=== PATIENT | female | born 1940 | race Caucasian/White ===

== ENCOUNTER → 2018-03-12 | Outpatient (CLI) | payer MEDICARE | END | disposition home or self-care (01) | LOC: PCVCIMAG 10:01 | DX: I08.1 Rheumatic disorders of both mitral and tricuspid valves (principal); I25.10 Atherosclerotic heart disease of native coronary artery without angina pectoris; I10 Essential (primary) hypertension; E78.00 Pure hypercholesterolemia, unspecified; I45.10 Unspecified right bundle-branch block; C50.919 Malignant neoplasm of unspecified site of unspecified female breast; R94.31 Abnormal electrocardiogram [ECG] [EKG]; Z79.899 Other long term (current) drug therapy; Z79.82 Long term (current) use of aspirin | CPT/HCPCS: 93005; 93306; G0463 ==

== ENCOUNTER → 2018-11-12 | Outpatient (CLI) | payer MEDICARE ==
--- NOTE | 2018-11-12 14:20 | PCVCIMAG ---
APPROVED REPORT Study performed: 11/12/2018 12:59:33 EXAM: Limited 2D and color flow Echocardiogram Patient Location: Echo lab Status: routine BSA: 1.73 HR: 68 bpmBP: 140/76 mmHg Rhythm: RBBB Other Information Study Quality: Adequate Risk Factors: Cardiac Risk Factors: HTN Indications CAD assess ef post chemo, RBBB 2D Dimensions IVSd: 12.19 (7-11mm) LVDd: 34.91 mm PWd: 8.97 (7-11mm) LVDs: 30.02 (25-40mm) Left Atrium: 33.21 (27-40mm) Aortic Root: 33.41 mm LV Single Plane 4CH: 62.39 % LV Single Plane 2CH: 53.16 % Biplane EF: 57.7 % Tricuspid Valve TR Peak Dami.: 2.23 m/s TR Peak Gr.: 19.86 mmHg Left Ventricle The left ventricle is normal size. There is normal LV segmental wall motion. Borderline concentric left ventricular hypertrophy. Left ventricular systolic function is normal. The left ventricular ejection fraction is within the normal range. LVEF is 55-60%. This study is not technically sufficient to allow evaluation of the LV diastolic function. Right Ventricle The right ventricle is normal size. The right ventricular systolic function is normal. Atria The left atrium size is normal. The right atrium size is normal. Aortic Valve The aortic valve is normal in structure. No aortic regurgitation is present. There is no aortic valvular stenosis. Mitral Valve The mitral valve is normal in structure. Mild mitral regurgitation. No evidence of mitral valve stenosis. Tricuspid Valve The tricuspid valve is normal in structure. Mild tricuspid regurgitation with PAP of 27 mmHg. Pulmonic Valve The pulmonary valve is normal in structure. There is no pulmonic valvular regurgitation. Great Vessels The aortic root is normal in size. IVC is normal in size and collapses >50% with inspiration. Pericardium There is no pericardial effusion. There is no pleural effusion. <Conclusion> The left ventricle is normal size. Borderline concentric left ventricular hypertrophy. LVEF is 55-60%. This study is not technically sufficient to allow evaluation of the LV diastolic function. The right ventricle is normal size. The left atrium size is normal. The aortic valve is normal in structure. Mild mitral regurgitation. Mild tricuspid regurgitation with PAP of 27 mmHg. The aortic root is normal in size. There is no pericardial effusion.
== END | disposition home or self-care (01) ==
LOC: PCVCIMAG 13:54
PROVIDERS: ATTEND Internal Medicine Cardiovascular Disease
DX: I08.1 Rheumatic disorders of both mitral and tricuspid valves (principal); I25.10 Atherosclerotic heart disease of native coronary artery without angina pectoris; I10 Essential (primary) hypertension; I45.10 Unspecified right bundle-branch block; M19.90 Unspecified osteoarthritis, unspecified site; Z92.21 Personal history of antineoplastic chemotherapy; Z79.82 Long term (current) use of aspirin
CPT/HCPCS: 36415; 80061; 93005; 93308; G0463

== ENCOUNTER → 2019-07-15 | Outpatient (CLI) | payer MEDICARE ==
[~2019-07-15] MED LIST: REGADENOSON 0.4 MG/5 ML DISP.SYRIN. IV ONE
--- NOTE | 2019-07-19 15:14 | PCVCIMAG ---
APPROVED REPORT Imaging Protocol: Rest Tc-99m/Stress Tc-99m 1 day Study performed: 07/15/2019 13:54:59 Indication: CAD Patient Location: Out-Patient Stress Nurse: Shelbie Lozano RN, Kassandra Berman RN [place] Tech:Elida Mtzmarina [facility] Ht: 5 ft 4 in Wt: 155 lbs BSA: 1.76 m2 HR: 68 bpm BP: 139/85 mmHg BMI: 26.6 Rhythm: Sinus Rhythm, RBBB, 1st degree AV block Medical History Medical History: Hyperlipidemia, CAD Medications: Aspirin, Crestor Allergies: No known drug allergies Cardiac Risk Factors: Age Previous Cardiac Procedures: 2016 PCI - LAD Pretest Chest Pain Characteristics: No chest pain Resting Data Rest SPECT myocardial perfusion imaging was performed in supine position 45 minutes following the intravenous injection of 9.8 mCi of Tc-99m Sestamibi. Time of rest injection: 1315 Date: 07/15/2019 Administration Route: IV Administration Site: Right AC Pharmacologic Stress Pharmacologic stress test was performed by injecting Regadenoson 0.4 mg IV push over 10-15 seconds immediately followed by the intravenous injection of 32.9 mCi of Tc-99m Sestamibi. Time of stress injection: 1430 Date: 07/15/2019 Administration Route: IV Administration Site: Right AC Gated Stress SPECT was performed 45 minutes after stress injection. The images were gated to evaluate regional wall motion and calculate left ventricular ejection fraction. Stress Test Details Stress Test: Pharmacologic stress testing performed using 0.4 mg of regadenoson per 5 mL given IV over 10 seconds. Reason for pharmacologic stress test: physical limitation, fatigue. HRMax Heart Rate (APMHR): 141 bpm Resting HR: 68 bpmTarget HR (85% APMHR): 119 bpm Max HR Achieved: 104 bpm % of APMHR: 73 Recovery HR: 91 bpm BP Resting BP: 139/85 mmHg Max BP: 129/70 mmHg Recovery BP: 144/67 mmHg ECG Resting ECG: Sinus Rhythm, RBBB, 1st degree AV block Stress ECG: Sinus Tachycardia, RBBB, 1st degree AV block Arrhythmia: PVC's Recovery ECG: Sinus Rhythm, RBBB, 1st degree AV block Clinical Reason for Termination: Completed protocol Stress Symptoms: Dyspnea, Chest fullness Symptoms resolved with caffeine. Stress ECG Conclusion ECG: Non-ischemic Study Quality Study: Good Study Data Post stress, the left ventricular ejection was 71%.. SSS: 9 SRS: 13 SDS: 0 TID = 0.97. Perfusion No evidence of stress induced ischemia or prior myocardial infarction. Wall Motion Normal left ventricular size and function with no regional wall motion abnormalities. Nuclear Conclusion No evidence of stress induced ischemia or prior myocardial infarction. Normal left ventricular size and function with no regional wall motion abnormalities. Post stress, the left ventricular ejection was 71%. No change since prior study dated June 2016. Interpreted by: Dom Avelar MD Electronically Approved: 07/16/2019 01:09:10 <Conclusion> ECG: Non-ischemic
== END | disposition home or self-care (01) ==
LOC: PCVCIMAG 12:57
PROVIDERS: ATTEND Internal Medicine Cardiovascular Disease
DX: I25.10 Atherosclerotic heart disease of native coronary artery without angina pectoris (principal); E78.00 Pure hypercholesterolemia, unspecified; I45.10 Unspecified right bundle-branch block; I67.1 Cerebral aneurysm, nonruptured; C50.919 Malignant neoplasm of unspecified site of unspecified female breast; E78.5 Hyperlipidemia, unspecified; M19.90 Unspecified osteoarthritis, unspecified site; R94.31 Abnormal electrocardiogram [ECG] [EKG]; R53.83 Other fatigue; Z92.21 Personal history of antineoplastic chemotherapy; Z79.82 Long term (current) use of aspirin; Z79.899 Other long term (current) drug therapy; Z72.89 Other problems related to lifestyle
CPT/HCPCS: 36415; 78452; 80061; 93017; A9500; G0463; J2785